=== PATIENT | male | born 1990 | race Native Hawaiian/Other Pacific Islander ===

== ENCOUNTER 2020-09-03 13:05 | Emergency (ER) | payer OTHER ==
[~2020-09-03] VITALS: Ht 177.8 cm; Wt 136.1 kg
[2020-09-03 13:10] VITALS: TEMP 98
[2020-09-03 13:50] LABS: PLATELET COUNT 221 K/uL (142-355)
[2020-09-03 16:00] VITALS: BP 138/85
== END 2020-09-03 16:12 | disposition home or self-care (01) ==
LOC: ED 13:05
PROVIDERS: Family Medicine
DX: K29.70 Gastritis, unspecified, without bleeding (principal); K75.9 Inflammatory liver disease, unspecified; R10.11 Right upper quadrant pain
CPT/HCPCS: 80053; 82150; 83690; 85027; 99283